=== PATIENT | female | born 1995 | race Caucasian/White ===

== ENCOUNTER 2022-03-25 08:59 | Emergency (ER) | payer OTHER ==
[~2022-03-25] VITALS: Ht 165.1 cm; Wt 45.5 kg
[2022-03-25 10:19] LABS: ANION GAP 8 mmol/L (8-16); CALCIUM, TOTAL 9.8 mg/dL (8.8-10.5); CARBON DIOXIDE 26 mmol/L (22-29); CHLORIDE 101 mmol/L (98-107); CREATININE 0.85 mg/dL (0.60-1.30); GLOMERULAR FILTR. RATE CALC > 60 mL/min (>60); GLUCOSE,RANDOM 92 mg/dL (70-110); POTASSIUM 4.1 mmol/L (3.5-5.1); SODIUM SERUM 135 mmol/L (136-145); UREA NITROGEN, BLOOD 7 mg/dL (7-18)
[2022-03-25 10:31] LABS: HCG,QUANTITATIVE < 1 mIU/mL (0-6)
[2022-03-25 11:08] VITALS: BP 110/80
== END 2022-03-25 11:09 | disposition home or self-care (01) ==
LOC: EMS 09:08
DX: S16.1XXA Strain of muscle, fascia and tendon at neck level, initial encounter (principal); S00.83XA Contusion of other part of head, initial encounter; S10.93XA Contusion of unspecified part of neck, initial encounter; W18.39XA Other fall on same level, initial encounter; Y93.89 Activity, other specified; Y92.89 Other specified places as the place of occurrence of the external cause; Y99.8 Other external cause status
CPT/HCPCS: 72040; 80048; 84702; 99283